=== PATIENT | male | born 1950 | race Caucasian/White ===

== ENCOUNTER 2019-12-04 16:52 | Emergency (ER) | payer SELFPAY ==
[2019-12-04] MEDS ORDERED: Diphtheria,Pertussis(Acell),Tetanus Vaccine 0.5 ML SDV IM ONE (17:29)
--- NOTE | 2019-12-04 17:32 | EDM.PDOC ---
ED HPI GENERAL MEDICAL PROBLEM - General Chief Complaint: Laceration Stated Complaint: CUT TO RT SIDE OF HEAD Time Seen by Provider: 12/04/19 17:32 - History of Present Illness INITIAL COMMENTS - FREE TEXT/NARRATIVE: Patient presents emergency department with an abrasion of his scalp, initially it was thought it may be a laceration and may need closure. 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 No loss of consciousness and no other issues. The area is approximately 2 cm and is superficial - Related Data Allergies Allergy/AdvReac Type Severity Reaction Status Date / Time Mbqiffp-Ehk-Hit Reductase Allergy Muscle Verified 12/04/19 17:15 Inhibitor Aches Home Meds: Home Meds Metoprolol Tartrate 25 mg PO BID 12/04/19 [History] gemfibroziL [Lopid] 300 mg PO BID 12/04/19 [History] Past Medical History HEENT History: Reports: Impaired Vision Cardiovascular History: Reports: High Cholesterol Musculoskeletal History: Reports: Arthritis Social & Family History - Tobacco Use Smoking Status *Q: Never Smoker - Caffeine Use Caffeine Use: Reports: Coffee - Recreational Drug Use Recreational Drug Use: No ED ROS GENERAL - Review of Systems Review Of Systems: Comprehensive ROS is negative, except as noted in HPI. ED EXAM, SKIN/RASH Exam: See Below General Appearance: Alert Head: Other (See HPI) Respiratory/Chest: No Respiratory Distress Cardiovascular: Normal Peripheral Pulses Extremities: Normal Inspection Neurological: CN II-XII Intact Skin: Warm Course - Vital Signs Last Recorded V/S: Last Vital Signs Temp 96.3 F L 12/04/19 17:28 Pulse 83 12/04/19 17:28 Resp 16 12/04/19 17:28 BP 133/92 H 12/04/19 17:28 Pulse Ox 97 12/04/19 17:28 - Orders/Labs/Meds Orders: Active Orders 24 hr Category Date Time Status Vaccines to be Administered [RC] PER UNIT ROUTINE Care 12/04/19 17:29 Active Meds: Medications Discontinued Medications Generic Name Dose Route Start Last Admin Trade Name Freq PRN Reason Stop Dose Admin Diphtheria/Tetanus/Acell Pertussis 0.5 ml 12/04/19 17:29 Adacel IM 12/04/19 17:30 .ONCE ONE Departure - Departure Time of Disposition: 17:39 Disposition: Home, Self-Care 01 Condition: Fair Clinical Impression: Abrasion - Discharge Information Instructions: Laceration Care, Adult, [id number] Referrals: PCP,None [Primary Care Provider] - Forms: ED Department Discharge Additional Instructions: Keep wound clean and dry, use antibiotic ointment as needed Sepsis Event Note (ED) - Evaluation Sepsis Screening Result: No Definite Risk - Focused Exam Vital Signs: Vital Signs Temp Pulse Resp BP Pulse Ox 12/04/19 17:28 96.3 F L 83 16 133/92 H 97 12/04/19 17:08 96.3 F L 83 16 133/92 H 97 - My Orders Last 24 Hours: My Active Orders 12/04/19 17:29 Vaccines to be Administered [RC] PER UNIT ROUTINE - Assessment/Plan Last 24 Hours: My Active Orders 12/04/19 17:29 Vaccines to be Administered [RC] PER UNIT ROUTINE
[2019-12-04] MEDS ORDERED: Bacitracin Oint 1 GM U/D Packet ONE (17:33)
[2019-12-04] MEDS ORDERED: Bacitracin Oint 1 GM U/D Packet TOP ONE (17:36)
== END 2019-12-04 18:11 | disposition home or self-care (01) ==
LOC: JP.ED 16:52
DX: S00.01XA Abrasion of scalp, initial encounter (principal); Z79.899 Other long term (current) drug therapy; Z23 Encounter for immunization; Z88.8 Allergy status to other drugs, medicaments and biological substances; W26.8XXA Contact with other sharp object(s), not elsewhere classified, initial encounter
CPT/HCPCS: 90471; 90715; 99282